=== PATIENT | male | born 1975 | race Two or more races ===

== ENCOUNTER 2020-08-20 12:30 | Observation (INO) | payer BC ==
[2020-08-20 13:41] LABS: BASO % 0.8 % (0-2.0); EOS % 1.8 % (0-4.5); HEMATOCRIT 41.6 % (35.4-49); HEMOGLOBIN 14.3 GM/dl (11.7-16.9); LYMPH % 12.5 % (8-40); MCH 31.1 pg (25.7-33.7); MCHC 34.3 g/dl (32.0-35.9); MEAN CELL VOLUME 90.6 fl (80-96); MEAN PLT VOLUME 6.9 fl (7.5-11.1); MONO % 9.3 % (3.8-10.2); NEUT % 75.6 % (42.8-82.8); PLATELET COUNT 300 K/MM3 (134-434); RBC 4.59 M/mm3 (4.00-5.60); RDW 12.4 % (11.9-15.9); WHITE BLOOD COUNT 8.3 K/mm3 (4.0-10.8)
[2020-08-20 13:49] LABS: ALBUMIN 4.3 g/dl (3.4-5.0); BILIRUBIN,TOTAL 0.6 mg/dl (0.2-1); CALCIUM 8.9 mg/dl (8.5-10); CREATININE 1.1 mg/dl (0.55-1.3); POTASSIUM 3.9 mmol/L (3.5-5.1); TOT PROT 7.6 g/dl (6.4-8.2)
[2020-08-20 18:30] VITALS: BMI 23.5
[2020-08-21 08:25] LABS: CHOLESTEROL 157 mg/dl (50-200); HDL CHOLESTEROL 60 mg/dl (40-60); LDL CHOLESTEROL (ONLY DFH) 88 mg/dl (5-100); TRIGLYCERIDES 47 mg/dl (0-150)
[2020-08-21 16:23] VITALS: BP 117/69; PULSE 70; TEMP 98.1
== END 2020-08-21 17:51 | disposition home or self-care (01) ==
LOC: FER 12:30 → INTOOBSV 13:06 → FM/S 13:06
PROVIDERS: ADMIT Internal Medicine; ATTEND Internal Medicine
DX: R07.89 Other chest pain (principal); R55 Syncope and collapse; F43.9 Reaction to severe stress, unspecified; R11.2 Nausea with vomiting, unspecified; R94.31 Abnormal electrocardiogram [ECG] [EKG]; R53.1 Weakness; H53.8 Other visual disturbances; R61 Generalized hyperhidrosis; H53.459 Other localized visual field defect, unspecified eye; Z88.0 Allergy status to penicillin
CPT/HCPCS: 36415; 71045-TC-FY; 80053; 80061; 82550; 84443; 84484; 85025; 93005; 93306-TC; 99285-25; C9803; G0378; U0003